=== PATIENT | male | born 1990 | race Caucasian/White ===

== ENCOUNTER 2020-07-05 18:32 | Inpatient (IN) | payer MEDICAID, SELFPAY ==
[2020-07-05 18:41] VITALS: PULSE 125; RESP 18; TEMP 36.6; O2SAT 95; BMI 23.6
--- NOTE | 2020-07-05 19:01 | ED_ITS ---
HPI - Psych General: Chief Complaint: Psychiatric Symptoms Stated Complaint: mhe/poss 96 hr hold Time Seen by Provider: 07/05/20 18:39 Source: patient and police Mode of arrival: other (police) Limitations: no limitations History of Present Illness: HPI Narrative: Caleb 29-year-old male is brought here by police. They were on a liv and arrested him. He states once they got him arrested he was saying that he was God and hallucinating. I believe he is under the influence of drugs. Her history is very hard to get from patient as he does appear delusional and is laughing and states he is seeing things. He denies SI or HI. Associated symptoms: Reports auditory hallucinations and visual hallucinations Review of Systems Const: Denies: fever(s), chills, body aches or change in appetite Eyes: Denies: blurry vision or eye discomfort ENMT: Denies: throat pain or dental pain Card: Denies: chest pain Resp: Denies: dyspnea GI: Denies: abdominal pain, nausea, vomiting or diarrhea : Denies: dysuria Musc: Denies: neck pain or back pain Skin/Breast: Denies: rash Neuro: Denies: headache(s) Psych: Reports: paranoia, visual hallucinations and auditory hallucinations Josue/Lymph: Denies: easy bruising All/Imm: Denies: urticaria Physical Exam Const: COMMON NORMALS: patient oriented x3 GENERAL APPEARANCE: anxious and disheveled HENMT: COMMON NORMALS: normocephalic and atraumatic HEAD & SCALP: normocephalic and atraumatic Eye: COMMON NORMALS: Equal, round and reactive pupils present and EOMs intact bilaterally PUPIL: Yes Equal, round and reactive pupils present Neck/C-Spine: COMMON NORMALS: full ROM and supple Chest: COMMONS NORMALS: normal inspection of the chest and normal palpation of entire chest wall Resp: COMMON NORMALS: normal respiratory effort, No retractions, No use of accessory muscles and clear to auscultation bilaterally AUSCULTATION: clear to auscultation bilaterally Cardio: COMMON NORMALS: regular rate, regular rhythm and No murmurs present (Cardio) RATE: regular rate RHYTHM: regular rhythm GI: COMMON NORMALS: Normal to inspection, nondistended, normoactive bowel sounds present, Soft to palpation, non-tender and no masses PALPATION: Yes Soft to palpation Extremity: COMMON NORMALS: normal to inspection and full ROM Neuro: COMMON NORMALS: patient oriented x3, moves all extremities and no focal motor deficits Psych: COMMON NORMALS: cooperative APPEARANCE: Yes disheveled ACTIVITY/ MOTOR BEHAVIOR: Yes fidgeting, Yes hyperactivity and Yes disorganized behavior THOUGHT PROCESS: Flight of ideas present THOUGHT CONTENT: Yes Hallucination(s) present Skin: COMMON NORMALS: no rashes or lesions noted and no wounds GENERAL SKIN EXAM: no rashes or lesions noted MDM - Psych MDM Narrative: Medical decision making narrative: Patient presents here with acute psychosis likely drug related. Patient has no signs of medical cause and his blood work here is normal. I spoke to psychiatrist Dr. Espinal and will admit to the psychiatric [facility]. He has been stable while here. Lab Data: Labs: Lab Results 07/05/20 07/05/20 Range/Units 19:08 19:08 WBC 9.9 (4.0-10.0) 10^3/ uL RBC 5.28 (4.1-5.3) 10^6/u L Hgb 16.9 H (11.7-16.6) g/dL Hct 49.8 (42.0-52.0) % MCV 94.3 H (80-94) fL MCH 32.0 (28.0-34.0) pg MCHC 33.9 (30.0-36.0) g/dL RDW 11.7 L (12.1-15.1) % Plt Count 368 (130-400) 10^3/c mm MPV 9.3 (7.4-10.4) fL Neut % (Auto) 78.4 % Lymph % (Auto) 14.2 % Harris % (Auto) 6.4 % Eos % (Auto) 0.2 % Baso % (Auto) 0.4 % Neut # (Auto) 7.74 H (1.8-7.7) 10^3/u L Lymph # (Auto) 1.4 (0.8-4.8) 10^3/u L Harris # (Auto) 0.6 (0.2-0.9) 10^3/u L Eos # (Auto) 0.0 (0.0-0.8) 10^3/u L Baso # (Auto) 0.0 (0.0-0.1) 10^3/u L Nucleated RBC % (a uto) 0 % Nucleated RBCs # 0.0 /100WBC Sodium 139 (136-145) mmol/L Potassium 3.7 (3.5-5.1) mmol/L Chloride 99 (98-107) mmol/L Carbon Dioxide 27 (22-29) mmol/L Anion Gap 16.7 (5-19) BUN 8 (6-20) mg/dL Creatinine 0.8 (0.7-1.2) mg/dL GFR Calculation 113.5 (90-130) mL/min Glucose 129 H (65-115) mg/dL Calculated Osmolal ity 288 (285-295) mOsm/k g Calcium 9.9 (8.5-10.5) mg/dL Total Bilirubin 0.5 (0.15-1.2) mg/dL AST 43 H (0-40) U/L ALT 57 H (0-41) U/L Alkaline Phosphata se 134 H (40-130) IU/L Total Protein 7.9 (6.6-8.7) g/dL Albumin 5.0 (3.5-5.2) g/dL Globulin 2.9 (1.3-4.6) g/dL Salicylates < 0.3 L (3-10) mg/dL Acetaminophen < 5.0 L (10-30) ug/mL Ethyl Alcohol < 10 (0-10) mg/dL Discharge Plan Discharge Patient Disposition: Admitted As Inpatient Clinical Impression: Acute psychosis Condition: Stable Prescriptions: No Action quetiapine 200 mg tablet 100 mg PO BID@0900,2100 RF: 0 Coding Level of Care Code ED 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
[2020-07-05 19:44] LABS: Basophils % 0.4 %; Eosinophils % 0.2 %; Hematocrit 49.8 % (42.0-52.0); Hemoglobin 16.9 g/dL (11.7-16.6); Lymphocytes # 1.4 10^3/uL (0.8-4.8); Lymphocytes % 14.2 %; Mean Corpuscular HGB Conc 33.9 g/dL (30.0-36.0); Mean Corpuscular Volume 94.3 fL (80-94); Mean Platelet Volume 9.3 fL (7.4-10.4); Monocytes # 0.6 10^3/uL (0.2-0.9); Monocytes % 6.4 %; Neutrophils # 7.74 10^3/uL (1.8-7.7); Neutrophils % 78.4 %; Nucleated Red Blood Cells % 0 %; Platelet Count 368 10^3/cmm (130-400); Red Blood Count 5.28 10^6/uL (4.1-5.3); Red Cell Distribution Width 11.7 % (12.1-15.1); White Blood Count 9.9 10^3/uL (4.0-10.0)
[2020-07-05] MEDS: LORazepam 2 mg Tablet PO (19:55)
[2020-07-05 19:56] LABS: Alanine Aminotransferase 57 U/L (0-41); Alkaline Phosphatase 134 IU/L (40-130); Anion Gap 16.7 (5-19); Aspartate Amino Transferase 43 U/L (0-40); Blood Urea Nitrogen 8 mg/dL (6-20); Calcium 9.9 mg/dL (8.5-10.5); Carbon Dioxide 27 mmol/L (22-29); Chloride 99 mmol/L (98-107); Globulin 2.9 g/dL (1.3-4.6); Glomerular Filtration Rate 113.5 mL/min (90-130); Glucose 129 mg/dL (65-115); Osmolality Calculated 288 mOsm/kg (285-295); Potassium 3.7 mmol/L (3.5-5.1); Sodium 139 mmol/L (136-145); Total Bilirubin 0.5 mg/dL (0.15-1.2); Total Protein 7.9 g/dL (6.6-8.7)
[2020-07-05 19:58] LABS: Acetaminophen < 5.0 ug/mL (10-30); Alcohol Level < 10 mg/dL (0-10); Salicylate < 0.3 mg/dL (3-10)
[2020-07-05 21:19] VITALS: PULSE 84; RESP 20; O2SAT 98
[2020-07-05 21:31] VITALS: PULSE 84; RESP 18; TEMP 36.6
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
[2020-07-05] MEDS: OLANZapine 5 mg ODT PO (21:55)
[2020-07-05] MEDS: hyDROXYzine 25 mg Capsule 50 MG PO (21:55)
[2020-07-05 22:00] VITALS: PULSE 84; RESP 18; TEMP 36.6
[2020-07-06 01:43] VITALS: BP 161/91; PULSE 121; RESP 19; TEMP 36.8; O2SAT 92
[2020-07-06 06:00] VITALS: RESP 16
[2020-07-06] MEDS: quetiapine 300 mg Tablet 150 MG PO ×2 (06:44→17:06)
[2020-07-06 14:00] VITALS: PULSE 115; RESP 18; TEMP 36.2; O2SAT 97
--- NOTE | 2020-07-06 14:35 | P.HP_ITS ---
Providers/Chief Complaint Admitting Physician: Georges Espinal MD Chief Complaint: mhe/poss 96 hr hold HPI NPU History of Present Illness Caleb Bello is a 29 year old male who presented to the emergency de partment with the following report: Chief Complaint: Psychiatric Symptoms Stated Complaint: mhe/poss 96 hr hold Time Seen by Provider: 07/05/20 18:39 Source: patient and police Mode of arrival: other (police) Limitations: no limitations History of Present Illness: HPI Narrative: Caleb 29-year-old male is brought here by police. They were on a liv and arrested him. He states once they got him arrested he was saying that he was God and hallucinating. I believe he is under the influence of drugs. Her history is very hard to get from patient as he does appear delusional and is laughing and states he is seeing things. He denies SI or HI. Associated symptoms: Reports auditory hallucinations and visual hallucinations. He was admitted to the neuropsychiatric unit for definitive treatment of those issues. Kenneth presented as a poor historian and very resistant to questioning. He became very angry from the very beginning reporting that people called him got to his face but then tell him he is not God. When I asked him his birthdate, he reported you mean the 1 for this body? He answered I do not know the question about smoking cigarettes, denied alcohol use denied bony dice or any other illicit drug use. He reports that he may have gone to some kind of rehab but denies ever having a DUI. 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 He spent most of the time ranting about people telling him he was got to his face and then trying to deny it later. He got very irritable and asked questions. When asked about the possibility of him trying a medication, he demanded that I leave the room. Psychiatric history: He reports that he had 1 inpatient hospitalization in the past. Substance abuse history: As above. Family history: He denies mental health or addiction treatment or suicide attempts or completions in his family. Developmental history: He denied any difficulties with his gestation Or or delivery, he reports he learned to walk and talk and met his developmental milestones on time, he denied any speech therapy, learning support, emotional support or special education classes. Psychosocial history: He reports his mother and father were together when he was born and that he is the only product of that union. He reports that his childhood was fine and he denied emotional, physical or sexual abuse. He reports he graduated from high school. He then got irritable about all the questions I asked including sexual orientation, past relationships, children, service or christian. Legal history: He would not answer and said it was irrelevant. Medical history: He reported that already knew. Meds NPU Home Medications Medication Instructions Recorded Confirmed Last Taken Type Seroquel 150 mg PO 16 07/05/20 07/05/20 Unknown History quetiapine [Seroquel] 300 mg PO BEDTIME 07/05/20 07/05/20 Unknown History Allergies Allergy/AdvReac Type Severity Reaction Status Date / Time No Known Allergies Allergy Verified 07/05/20 18:49 PFSH NPU PFSH: Social History Smoking and tobacco status: former smoker Mental Status Exam MSE Comments: This is a well-nourished, well-developed white male with adequate grooming and eye contact with hospital scrubs on. No abnormal movements except for psychomotor agitation. Uncooperative with exam in mild to moderate distress. Speech was increased rate and volume and effeminate. Mood described as fine affect bizarre. Thought process disorganized at times, thou ght content: Patient denied suicidal or homicidal ideations, there were no delusions reported but extreme hyper islam delusions noted. He did not report auditory or visual hallucinations but was found talking to himself and into the mirror on multiple occasions. Attention and concentration were limited and memory was unreliable but none were formally tested. He is alert and oriented times person and place. Insight and judgment are impaired impulse control is impaired. Vitals/I&O/Wt Last Vital Signs Temp 97.2 F L 07/06/20 14:00 Pulse 115 H 07/06/20 14:00 Resp 18 07/06/20 14:00 BP 161/91 07/06/20 01:43 Pulse Ox 97 07/06/20 14:00 Weight last 48 hrs Weight 72.575 kg Data NPU : 07/05/20 19:08 07/05/20 19:08 A&P Assessment and plan (1) Acute psychosis: Status: Acute (2) Silvio: Status: Acute Additional A&P Information This is a 29-year-old white male who presents with jose silvio/psychosis believing that he is God and being very irritable with anyone who disagrees with disposition. He has been taking Seroquel but is clearly not having control of his symptoms. 1. Continue current medication. We will attempt to get him to consider a different antipsychotic. 2. Continue every 15 minute checks for safety. 3. Encourage individual, group and milieu therapy. 4. We will attempt to get UDS and determine whether addiction is playing a role in his presentation. Involuntary Hold Information 96 Hour Hold: 96 Hour Involuntary Admission: Yes 96 Hour Hold Ending Date: 07/11/20 96 Hour Hold Ending Time: 20:09 Attestations NPU Medical Necessity Statement*: Inpatient hospitalization is medically necessary and the clinically appropriate intervention at this time. We will monitor medications and make changes as indicated. He will be in the hospital for over 2 midnights. Likely length of stay 8 to 10 days. 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
--- NOTE | 2020-07-06 17:56 | PC.NURSE ---
Vitals Patient refused to let nurse to obtain blood pressure.
[2020-07-06] MEDS: trazodone 50 mg Tablet PO (20:16)
[2020-07-06] MEDS: hyDROXYzine 25 mg Capsule 50 MG PO (20:16)
[2020-07-06] MEDS: nicotine 2 mg Gum BUCCAL (20:16)
[2020-07-06] MEDS: quetiapine 300 mg Tablet PO (20:16)
[2020-07-06 22:00] VITALS: PULSE 107; RESP 18; TEMP 36.2; O2SAT 94
[2020-07-07 06:00] VITALS: BP 113/68; PULSE 112; RESP 17; TEMP 36.3; O2SAT 96
[2020-07-07] MEDS: quetiapine 300 mg Tablet 150 MG PO ×2 (06:08→16:31)
[2020-07-07] MEDS: nicotine 2 mg Gum BUCCAL ×2 (09:01→18:45)
[2020-07-07 14:00] VITALS: BP 105/65; PULSE 105; RESP 20; TEMP 36.4; O2SAT 97
--- NOTE | 2020-07-07 18:57 | PM.NPN ---
Subjective NPU Subjective: Interval history: Kenneth presents today continuing to struggle with his psychosis. Getting angry off and on about the questions were being asked of him and ultimately not wanting to speak about the fact that he is God. But and we talked about psychosis and the fact that we needed to assist him in his psychosis, he reported that that was not true and that he only had to stay 96 hours. Then he got upset when he found out that the 96-hour hold does not include the weekend. He was not open to considering medication. Mental Status Exam MSE Comments: This is a well-nourished, well-developed white male with adequate grooming and eye contact with hospital scrubs on. No abnormal movements except for psychomotor agitation. Uncooperative with exam in mild to moderate distress. Speech was increased rate and volume and effeminate. Mood described as okay, affect bizarre. Thought process disorganized at times, thought content: Patient denied suicidal or homicidal ideations, there were no delusions reported but extreme hyper judaism delusions noted. He did not report auditory or visual hallucinations but was found talking to himself and into the mirror on multiple occasions. Attention and concentration were limited and memory was unreliable but none were formally tested. He is alert and oriented times person and place. Insight and judgment are impaired impulse control is impaired. Vitals/I&O/Wt Last Vital Signs Temp 97.7 F 07/07/20 20:10 Pulse 101 H 07/07/20 20:10 Resp 19 H 07/07/20 20:10 BP 129/83 07/07/20 20:10 Pulse Ox 94 07/07/20 20:10 Data NPU : 07/05/20 19:08 07/05/20 19:08 A&P Additional A&P Information (1) Acute psychosis: (2) Silvio: This is a 29-year-old white male who presents with jose silvio/psychosis believing that he is God and being very irritable with anyone who disagrees with disposition. He has been taking Seroquel but is clearly not having control of his symptoms. 1. Continue current medication. We will attempt to get him to consider a different antipsychotic. 2. Continue every 15 minute checks for safety. 3. Encourage individual, group and milieu therapy. 4. We will attempt to get UDS and determine whether addiction is playing a role in his presentation. Involuntary Hold Information 96 Hour Hold: 96 Hour Involuntary Admission: Yes 96 Hour Hold Ending Date: 07/11/20 96 Hour Hold Ending Time: 20:09 Attestations NPU Medical Necessity Statement*: Inpatient hospitalization is medically necessary and the clinically appropriate intervention at this time. We will monitor medications and make changes as indicated. Likely length of stay 8 to 10 days. 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
[2020-07-07 20:10] VITALS: BP 129/83; PULSE 101; RESP 19; TEMP 36.5; O2SAT 94
[2020-07-07] MEDS: quetiapine 300 mg Tablet PO (20:19)
[2020-07-08 06:00] VITALS: BP 119/80; PULSE 94; RESP 18; TEMP 36.2; O2SAT 96
[2020-07-08] MEDS: quetiapine 300 mg Tablet 150 MG PO ×2 (06:39→16:12)
[2020-07-08] MEDS: hyDROXYzine 25 mg Capsule 50 MG PO (11:07)
--- NOTE | 2020-07-08 11:09 | PC.NURSE ---
Anxiety/PRN Vistaril Patient at nurses station reporting increased anxiety, patient has been walking in hallway and talking to himself. Will monitor for effectiveness of this medication.
[2020-07-08] MEDS: nicotine 2 mg Gum BUCCAL ×2 (12:25→17:21)
[2020-07-08] MEDS: OLANZapine 5 mg ODT PO (12:27)
--- NOTE | 2020-07-08 12:28 | PC.NURSE ---
PRN ZYDIS Patient requested further medication for anxiety. Given 5mg zyprexa zydis.
--- NOTE | 2020-07-08 15:48 | P.PN_ITS ---
Subjective NPU Subjective: Interval history: Caleb presents today reporting that he is not interested in any medication. He continues to deny that he is having any psychiatric difficulty. I continue to review with him the fact that his desire discharge would only be accomplished by us treating his symptoms. I discussed the fact with him that I would be forced to put in a 21-day hold given his level of dysfunction and he continued to resist any kind of treatment or suggestion of any mental difficulties. Mental Status Exam MSE Comments: This is a well-nourished, well-developed white male with adequate grooming and eye contact with hospital scrubs on. No abnormal movements except for psychomotor agitation. Uncooperative with exam in mild to moderate distress. Speech was increased rate and volume and effeminate. Mood described as fine, affect bizarre and irritable. Thought process disorganized at times, thought content: Patient denied suicidal or homicidal ideations, there were no delusions reported but extreme hyper catholic delusions noted. He did not report auditory or visual hallucinations but was found talking to himself and into the mirror on multiple occasions. Attention and concentration were limited and memory was unreliable but none were formally tested. He is alert and oriented times person and place. Insight and judgment are impaired impulse control is impaired. Vitals/I&O/Wt Last Vital Signs Temp 97.2 F L 07/08/20 06:00 Pulse 94 07/08/20 06:00 Resp 18 07/08/20 06:00 BP 119/80 07/08/20 06:00 Pulse Ox 96 07/08/20 06:00 Weight last 48 hrs Weight 74.843 kg Data NPU : 07/05/20 19:08 07/05/20 19:08 A&P Additional A&P Information (1) Acute psychosis: (2) Silvio: This is a 29-year-old white male who presents with jose silvio/psychosis believing that he is God and being very irritable with anyone who disagrees with disposition. He has been taking Seroquel but is clearly not having control of his symptoms. 1. Continue current medication. We will start Abilify 10 mg p.o. every morning as patient approached this principal technical writer later and stated he was willing to try it if it would get him discharged earlier after discussion of the risks, benefits and alternatives he appears to understand agreed to proceed as is documented in this note 2. Continue every 15 minute checks for safety. 3. Encourage individual, group and milieu therapy. 4. We will attempt to get UDS and determine whether addiction is playing a role in his presentation. Involuntary Hold Information 96 Hour Hold: 96 Hour Involuntary Admission: Yes 96 Hour Hold Ending Date: 07/11/20 96 Hour Hold Ending Time: 20:09 Attestations NPU Medical Necessity Statement*: Inpatient hospitalization is medically necessary and the clinically appropriate intervention at this time. We will monitor medications and make changes as indicated. Likely length of stay 8 to 10 days. 21-day hold paperwork has been submitted. 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
[2020-07-08] MEDS: ARIPiprazole 10 mg Tablet PO (16:11)
[2020-07-08] MEDS: quetiapine 300 mg Tablet PO (21:53)
[2020-07-08 22:00] VITALS: BP 125/82; PULSE 107; RESP 18; TEMP 36.2; O2SAT 97
[2020-07-09 06:00] VITALS: BP 145/93; PULSE 98; RESP 20; TEMP 36.3; O2SAT 98
[2020-07-09] MEDS: quetiapine 300 mg Tablet 150 MG PO ×2 (06:07→16:40)
[2020-07-09] MEDS: ARIPiprazole 10 mg Tablet PO (08:29)
[2020-07-09] MEDS: nicotine 2 mg Gum BUCCAL ×3 (10:53→17:21)
[2020-07-09] MEDS: OLANZapine 5 mg ODT PO ×2 (12:15→16:42)
[2020-07-09 13:52] VITALS: BP 147/98; PULSE 103; RESP 18; TEMP 36.5; O2SAT 96
--- NOTE | 2020-07-09 17:55 | P.PN_ITS ---
Subjective NPU Subjective: Interval history: Caleb presents today endorsing that he is tolerating the medication at this point. He denied any specific side effects or concerns from the medication. He reports that he is sleeping a little better and eating fine. He continues to be fairly resistant to interview. Mental Status Exam MSE Comments: This is a well-nourished, well-developed white male with adequate grooming and eye contact with hospital scrubs on. No abnormal movements except for psychomotor agitation. Uncooperative with exam in mild distress. Speech was decreased rate and volume and effeminate. Mood described as tired, affect bizarre and a little less irritable. Thought process disorganized at times, thought content: Patient denied suicidal or homicidal ideations, there were no delusions reported but extreme hyper moravian delusions noted. He did not report auditory or visual hallucinations but was found talking to himself and into the mirror on multiple occasions. Attention and concentration were limited and memory was unreliable but none were formally tested. He is alert and oriented times person and place. Insight and judgment are impaired impulse control is impaired. Vitals/I&O/Wt Last Vital Signs Temp 98.1 F 07/09/20 22:00 Pulse 78 07/09/20 22:00 Resp 18 07/09/20 22:00 BP 116/78 07/09/20 22:00 Pulse Ox 98 07/09/20 22:00 Weight last 48 hrs Weight 74.843 kg Data NPU : 07/05/20 19:08 07/05/20 19:08 A&P Additional A&P Information (1) Acute psychosis: (2) Silvio: This is a 29-year-old white male who presents with jose silvio/psychosis believing that he is God and being very irritable with anyone who disagrees with disposition. He has been taking Seroquel but is clearly not having control of his symptoms. 1. Continue current medication. We will consider increasing Abilify tomorrow. 2. Continue every 15 minute checks for safety. 3. Encourage individual, group and milieu therapy. 4. We will attempt to get UDS and determine whether addiction is playing a role in his presentation. Involuntary Hold Information 96 Hour Hold: 96 Hour Involuntary Admission: Yes 96 Hour Hold Ending Date: 07/11/20 96 Hour Hold Ending Time: 20:09 Attestations NPU Medical Necessity Statement*: Inpatient hospitalization is medically necessary and the clinically appropriate intervention at this time. We will monitor medications and make changes as indicated. Likely length of stay 8 to 10 days. 21-day hold hearing on Saturday. 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
[2020-07-09] MEDS: quetiapine 300 mg Tablet PO (20:55)
[2020-07-09 22:00] VITALS: BP 116/78; PULSE 78; RESP 18; TEMP 36.7; O2SAT 98
[2020-07-10 06:00] VITALS: BP 159/83; PULSE 90; RESP 19; TEMP 36.6; O2SAT 97
[2020-07-10] MEDS: quetiapine 300 mg Tablet 150 MG PO ×2 (06:17→15:44)
[2020-07-10] MEDS: ARIPiprazole 10 mg Tablet PO (08:04)
[2020-07-10] MEDS: nicotine 2 mg Gum BUCCAL ×2 (10:59→16:42)
[2020-07-10] MEDS: OLANZapine 5 mg ODT PO ×2 (11:49→17:25)
[2020-07-10 14:00] VITALS: BP 136/92; PULSE 129; RESP 20; TEMP 36.6
--- NOTE | 2020-07-10 17:03 | PM.NPN ---
Subjective NPU Subjective: Interval history: Caleb presents today essentially unchanged but certainly not as aggressive in his irritability. He continues to be mostly excepting of the questions being asked except for any questions around God. Any questions in this area elicit a grimaldo and aggressive response which usually leads to him speaking to himself and very internally preoccupied. He has become a little less on edge of the last discharge or delusions are discussed. Mental Status Exam MSE Comments: This is a well-nourished, well-developed white male with adequate grooming and eye contact with hospital scrubs on. No abnormal movements except for psychomotor agitation. Uncooperative with exam in mild distress. Speech was decreased rate and volume and effeminate. Mood described as fine, affect bizarre and a little less irritable. Thought process disorganized at times, thought content: Patient denied suicidal or homicidal ideations, there were no delusions reported but extreme hyper islam delusions noted. He did not report auditory or visual hallucinations but was found talking to himself and into the mirror on multiple occasions. Attention and concentration were limited and memory was unreliable but none were formally tested. He is alert and oriented times person and place. Insight and judgment are impaired impulse control is impaired. Vitals/I&O/Wt Last Vital Signs Temp 96.8 F L 07/10/20 22:00 Pulse 116 H 07/10/20 22:00 Resp 16 07/10/20 22:00 BP 136/92 07/10/20 14:00 Pulse Ox 94 07/10/20 22:00 Weight last 48 hrs Weight 74.843 kg Data NPU : 07/05/20 19:08 07/05/20 19:08 A&P Additional A&P Information (1) Acute psychosis: (2) Silvio: This is a 29-year-old white male who presents with jose silvio/psychosis believing that he is God and being very irritable with anyone who disagrees with disposition. He has been taking Seroquel but is clearly not having control of his symptoms. 1. Continue current medication. Increase Abilify to 15 mg p.o. every morning in the morning. 2. Continue every 15 minute checks for safety. 3. Encourage individual, group and milieu therapy. 4. We will attempt to get UDS and determine whether addiction is playing a role in his presentation Involuntary Hold Information 96 Hour Hold: 96 Hour Involuntary Admission: Yes 96 Hour Hold Ending Date: 07/11/20 96 Hour Hold Ending Time: 20:09 Attestations NPU Medical Necessity Statement*: Inpatient hospitalization is medically necessary and the clinically appropriate intervention at this time. We will monitor medications and make changes as indicated. Likely length of stay 8 to 10 days. 21-day hold hearing on tomorrow. 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
[2020-07-10] MEDS: quetiapine 300 mg Tablet PO (20:15)
--- NOTE | 2020-07-10 21:19 | PC.NURSE ---
PLEASANT, DENIES WANTING TO HARM SELF. TALKATIVE IN DAY ROOM DURING SNACK TIME.
[2020-07-10 22:00] VITALS: PULSE 116; RESP 16; TEMP 36; O2SAT 94
[2020-07-11 06:00] VITALS: BP 122/79; PULSE 87; RESP 17; TEMP 36; O2SAT 96
[2020-07-11] MEDS: ARIPiprazole 10 mg Tablet PO (07:34)
[2020-07-11] MEDS: quetiapine 300 mg Tablet 150 MG PO ×2 (07:34→15:28)
[2020-07-11] MEDS: nicotine 2 mg Gum BUCCAL ×3 (12:24→18:31)
--- NOTE | 2020-07-11 14:04 | P.PN_ITS ---
Subjective NPU Subjective: Interval history: Caleb presents today attending the lobby for discharge. He attempted again at the court house during the 21-day hold hearing. He did attempt to get the stone setter apprentice to throw out the request. But could obviously not provide any rational position as to why we should not continue with his inpatient treatment. He is continuing to take oral medication. He seems less irritable. He talked about his outpatient psychiatrist and his mother collaborating to get him to continue the medication after discharge. He seems ambivalent about taking the medication. He seemed to be eating okay sleeping a little better. Mental Status Exam MSE Comments: This is a well-nourished, well-developed white male with adequate grooming and eye contact with hospital scrubs on. No abnormal movements except for resolving psychomotor agitation. More cooperative with exam in mild distress. Speech was more normal rate and volume and effeminate. Mood described as okay, affect less bizarre and irritable. Thought process disorganized at times, thought content: Patient denied suicidal or homicidal ideations, there were no delusions reported but less prominent hyper jainism delusions noted. He did not report auditory or visual hallucinations and was not seen talking to himself today. Attention and concentration were improving and memory was still unreliable but none were formally tested. He is alert and oriented times person and place. Insight and judgment are impaired, impulse control is impaired. Vitals/I&O/Wt Last Vital Signs Temp 97.8 F 07/11/20 21:21 Pulse 84 07/11/20 21:21 Resp 16 07/11/20 21:21 BP 138/98 07/11/20 21:21 Pulse Ox 97 07/11/20 21:21 Data NPU : 07/05/20 19:08 07/05/20 19:08 A&P Assessment and plan (1) Bipolar disorder with psychotic features: Status: Acute Additional A&P Information (1) Acute psychosis: (2) Silvio: This is a 29-year-old white male who presents with jose silvio/psychosis believ ing that he is God and being very irritable with anyone who disagrees with disposition. He has been taking Seroquel but is clearly not having control of his symptoms. 1. Continue current medication. We will discuss the possibility of the long- acting injectable tomorrow and hope that over the next days he will be open to taking the shot. 2. Continue every 15 minute checks for safety. 3. Encourage individual, group and milieu therapy. 4. Missed the opportunity to get information from his UDS so we will not know whether substances played a role in this manic episode. 5. He was placed on 21-day hold today. Involuntary Hold Information 96 Hour Hold: 96 Hour Involuntary Admission: Yes 96 Hour Hold Ending Date: 07/11/20 96 Hour Hold Ending Time: 20:09 Attestations NPU Medical Necessity Statement*: Inpatient hospitalization is medically necessary and the clinically appropriate intervention at this time. We will monitor medications and make changes as indicated. Likely length of stay 8 to 10 days. Coding Level of Care Code Acute [employer] for Moncho Marvin Diagnoses Bipolar disorder with psychotic features F31.9
--- NOTE | 2020-07-11 14:28 | PC.NURSE ---
OFF UNIT FOR [address]
--- NOTE | 2020-07-11 15:26 | PC.NURSE ---
return to unit from [address]
[2020-07-11] MEDS: OLANZapine 5 mg ODT PO ×2 (15:44→21:28)
--- NOTE | 2020-07-11 15:44 | PC.NURSE ---
PRN ZYPREXA ZYDIS 5 MG GIVEN PO PER PT C/O STATED ANXIETY/AGITATION. PT RETURNED TO UNIT FROM [address], GOT ON THE PHONE AND WAS YELLING THEY ARE KEEPING ME LONGER! I'M BEING HELD HERE HOSTAGE!
[2020-07-11] MEDS: acetaminophen 325 mg Tablet 650 MG PO (18:36)
[2020-07-11 21:21] VITALS: BP 138/98; PULSE 84; RESP 16; TEMP 36.6; O2SAT 97
[2020-07-11] MEDS: quetiapine 300 mg Tablet PO (21:28)
[2020-07-12 06:00] VITALS: BP 126/89; PULSE 83; RESP 16; TEMP 36.3; O2SAT 97
[2020-07-12] MEDS: quetiapine 300 mg Tablet 150 MG PO ×2 (06:14→15:19)
[2020-07-12] MEDS: ARIPiprazole 10 mg Tablet PO (08:35)
[2020-07-12] MEDS: nicotine 2 mg Gum BUCCAL ×2 (11:49→17:01)
[2020-07-12 14:00] VITALS: BP 134/85; PULSE 120; RESP 18; TEMP 37.1; O2SAT 96
[2020-07-12] MEDS: OLANZapine 5 mg ODT PO ×2 (17:01→21:54)
--- NOTE | 2020-07-12 17:02 | PC.NURSE ---
PRN Zyprexa Zydis Patient at nurse's station requesting something for agitation/anxiety. Patient pacing in halls, states he feels his anxiety rising and doesn't want his behavior to start. 5mg PO Zyprexa Zydis given. Will monitor for effectiveness.
[2020-07-12] MEDS: ARIPiprazole Maintena 400 MG IM (17:33)
--- NOTE | 2020-07-12 18:47 | PM.NPN ---
Subjective NPU Subjective: Interval history: Caleb presented today continuing to have some resistance to treatment but also showing some improved collaborative perspective. He initially was resistant to the idea of an IM preparation of Abilify reporting he wanted to just take the pills every day. However we discussed the importance of compliance and outcomes with the medication. And how confident the inpatient and outpatient teams can be with adherence when there is a once a month injection. We discussed the risks, benefits and alternatives of initiating Abilify Maintena and he understood and agreed to proceed as is documented in his note. Mental Status Exam MSE Comments: This is a well-nourished, well-developed white male with adequate grooming and eye contact with hospital scrubs on. No abnormal movements except for resolving mild psychomotor agitation. More cooperative with exam in no acute distress. Speech was normal rate and volume and effeminate. Mood described as better, affect more euthymic. Thought process mostly organized, thought content: Patient denied suicidal or homicidal ideations, there were no delusions reported but lessening hyper roman catholic delusions noted. He did not report auditory or visual hallucinations and was not seen talking to himself today. Attention and concentration were improving and memory was more reliable but none were formally tested. He is alert and oriented times person and place. Insight and judgment are impaired, but improving, impulse control is impaired. Vitals/I&O/Wt Last Vital Signs Temp 98.1 F 07/12/20 22:00 Pulse 128 H 07/12/20 22:00 Resp 18 07/12/20 22:00 BP 125/78 07/12/20 22:00 Pulse Ox 97 07/12/20 22:00 Data NPU : 07/05/20 19:08 07/05/20 19:08 A&P Additional A&P Information (1) Bipolar disorder with psychotic features: Additional A&P Information (1) Acute psychosis: (2) Silvio: This is a 29-year-old white male who presents with jose silvio/psychosis believing that he is God and being very irritable with anyone who disagrees with disposition. He has been taking Seroquel but is clearly not having control of his symptoms. 1. Continue current medication. Initiate Abilify Maintena at 400 mg IM every 30 days and continue the oral Abilify for 14 more days. 2. Continue every 15 minute checks for safety. 3. Encourage individual, group and milieu therapy. 4. Missed the opportunity to get information from his UDS so we will not know whether substances played a role in this manic episode. Involuntary Hold Information 96 Hour Hold: 96 Hour Involuntary Admission: Yes 96 Hour Hold Ending Date: 07/11/20 96 Hour Hold Ending Time: 20:09 Attestations NPU Medical Necessity Statement*: Inpatient hospitalization is medically necessary and the clinically appropriate intervention at this time. We will monitor medications and make changes as indicated. Likely length of stay 4-6 days. Coding Level of Care Code Acute Equal Opportunity Counselor for Moncho Marvin
[2020-07-12] MEDS: quetiapine 300 mg Tablet PO (20:50)
[2020-07-12] MEDS: acetaminophen 325 mg Tablet 650 MG PO (20:51)
[2020-07-12 22:00] VITALS: BP 125/78; PULSE 128; RESP 18; TEMP 36.7; O2SAT 97
--- NOTE | 2020-07-12 22:00 | PC.NURSE ---
Zyprexa Zydis 5mg PO Zyprexa Zydis given for anxiety. Will continue to monitor
[2020-07-12 22:12] LABS: Amphetamines Screen Urine Negative (Negative); Barbiturates Screen Urine Negative (Negative); Benzodiazepines Screen Urine Negative (Negative); Cocaine Screen Urine Negative (Negative); Opiate Screen Urine Negative (Negative); PCP Screen Urine Negative (Negative); THC Screen Urine Negative (Negative)
--- NOTE | 2020-07-13 02:32 | PC.NURSE ---
pm assessment V/S NORMAL, BREATH SOUNDS NORMAL, HEART SOUNDS NORMAL, PROVIDED URINE SAMPLE THIS EVENING. PT CONFIRMS AH, BUT STATES THAT HE ALWAYS HEARS THEM. PT IS LESS MANIC SINCE THE LAST TIME THIS NURSE OBSERVED HIM A WEEK AGO. HE IS ABLE TO ASK/ANSWER QUESTIONS APPROPRIATELY. PT STATED, I HOPE I AM ABLE TO GO HOME AND SPEND KIM WITH MY FAMILY. PT STATES THAT HIS MOTHER IS A STRONG SUPPORT SYSTEM FOR HIM AND HE INTENDS TO CARRY ON WITH MEDICATION WHEN HE LEAVES THE UNIT. HIS SPEECH IS STILL PRESSURED AND HE BARELY TAKES A BREATH BETWEEN WORDS. HE RESPONDS APPROPRIATELY TO STAFF. WILL CONTINUE TO MONITOR PT
[2020-07-13] MEDS: quetiapine 300 mg Tablet 150 MG PO ×2 (05:40→15:16)
[2020-07-13 06:00] VITALS: BP 128/82; PULSE 107; RESP 18; TEMP 36.5; O2SAT 107
[2020-07-13] MEDS: acetaminophen 325 mg Tablet 650 MG PO ×4 (06:11→21:22)
[2020-07-13] MEDS: ARIPiprazole 10 mg Tablet PO (07:41)
[2020-07-13] MEDS: nicotine 2 mg Gum BUCCAL ×4 (08:06→19:11)
[2020-07-13] MEDS: OLANZapine 5 mg ODT PO ×2 (09:12→18:34)
--- NOTE | 2020-07-13 09:12 | PC.NURSE ---
PRN Zyprexa Zydis Patient stated he he was anxious and requested zyprexa zydis.
[2020-07-13 12:39] VITALS: BP 121/83; PULSE 109; RESP 18; TEMP 37.2; O2SAT 95
--- NOTE | 2020-07-13 18:32 | PM.NPN ---
Subjective NPU Subjective: Interval history: Caleb presented today reporting that he is feeling much better and was able to have a conversation about his God complex. He was able to identify that what this technical publications writer's been saying this entire time about his delusions was accurate. He identified that the Abilify does assist in clearing his mind of the thoughts he had been having. He agreed to take the injection and reports that he is having no ill effects from it. We discussed the possibility of discharge in the morning and his mother was supportive of that idea. Mental Status Exam MSE Comments: This is a well-nourished, well-developed white male with adequate grooming and eye contact with hospital scrubs on. No abnormal movements except for resolving mild psychomotor agitation. More cooperative with exam in no acute distress. Speech was normal rate and volume and effeminate. Mood described as pretty good, affect more euthymic. Thought process mostly organized, thought content: Patient denied suicidal or homicidal ideations, there were no delusions reported or noted. He did not report auditory or visual hallucinations and was not seen talking to himself today. Attention and concentration were improving and memory was more reliable but none were formally tested. He is alert and oriented times person and place. Insight and judgment are improving, impulse control is improving. Vitals/I&O/Wt Last Vital Signs Temp 98.4 F 07/13/20 21:07 Pulse 111 H 07/13/20 21:07 Resp 18 07/13/20 21:07 BP 129/87 07/13/20 21:07 Pulse Ox 97 07/13/20 21:07 Data NPU : 07/05/20 19:08 07/05/20 19:08 A&P Additional A&P Information (1) Bipolar disorder with psychotic features: Additional A&P Information (1) Acute psychosis: (2) Silvio: This is a 29-year-old white male who presents with jose silvio/psychosis believing that he is God and being very irritable with anyone who disagrees with disposition. He presents today improving on Abilify and gearing up for discharge. 1. Continue current medication. 3. Encourage individual, group and milieu therapy. 4. Missed the opportunity to get information from his UDS so we will not know whether substances played a role in this manic episode. Involuntary Hold Information 96 Hour Hold: 96 Hour Involuntary Admission: Yes 96 Hour Hold Ending Date: 07/11/20 96 Hour Hold Ending Time: 20:09 Attestations NPU Medical Necessity Statement*: Inpatient hospitalization is medically necessary and the clinically appropriate intervention at this time. We will monitor medications and make changes as indicated. Likely length of stay 1-3 days. Tentative plan for discharge tomorrow. Coding Level of Care Code Acute Room Attendants for Moncho Marvin
--- NOTE | 2020-07-13 18:34 | PC.NURSE ---
prn ZYPREXA ZYDIS 5 MG GIVEN PO PER PT C/O STATED ANXIETY/AGITATION. WILL CONT TO MONITOR.
[2020-07-13 21:07] VITALS: BP 129/87; PULSE 111; RESP 18; TEMP 36.9; O2SAT 97
[2020-07-13] MEDS: quetiapine 300 mg Tablet PO (21:22)
[2020-07-13] MEDS: trazodone 50 mg Tablet PO (21:22)
[2020-07-14] MEDS: quetiapine 300 mg Tablet 150 MG PO (05:56)
[2020-07-14 06:00] VITALS: BP 129/83; PULSE 116; RESP 18; TEMP 36.9; O2SAT 96
[2020-07-14] MEDS: hyDROXYzine 25 mg Capsule 50 MG PO (06:55)
[2020-07-14] MEDS: nicotine 2 mg Gum BUCCAL ×2 (06:55→11:02)
[2020-07-14] MEDS: ARIPiprazole 10 mg Tablet PO (08:16)
--- NOTE | 2020-07-14 08:39 | P.DS_ITS ---
Diagnoses at Discharge Discharge Diagnosis (1) Bipolar disorder with psychotic features: Status: Acute Reason for Visit Reason for Visit: mhe/poss 96 hr hold Brief History: History of Present Illness Caleb Bello is a 29 year old male who presented to the emergency department with the following report: Chief Complaint: Psychiatric Symptoms Stated Complaint: mhe/poss 96 hr hold Time Seen by Provider: 07/05/20 18:39 Source: patient and police Mode of arrival: other (police) Limitations: no limitations History of Present Illness: HPI Narrative: Caleb 29-year-old male is brought here by police. They were on a liv and arrested him. He states once they got him arrested he was saying that he was God and hallucinating. I believe he is under the influence of drugs. Her history is very hard to get from patient as he does appear delusional and is laughing and states he is seeing things. He denies SI or HI. Associated symptoms: Reports auditory hallucinations and visual hallucinations. He was admitted to the neuropsychiatric unit for definitive treatment of those issues. Kenneth presented as a poor historian and very resistant to questioning. He became very angry from the very beginning reporting that people called him got to his face but then tell him he is not God. When I asked him his birthdate, he reported you mean the 1 for this body? He answered I do not know the question about smoking cigarettes, denied alcohol use denied jaundice or any other illicit drug use. He reports that he may have gone to some kind of rehab but denies ever having a DUI. 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 He spent most of the time ranting about people telling him he was got to his face and then trying to deny it later. He got very irritable and asked questions. When asked about the possibility of him trying a medication, he demanded that I leave the room. Psychiatric history: He reports that he had 1 inpatient hospitalization in the past. Substance abuse history: As above. Family history: He denies mental health or addiction treatment or suicide attempts or completions in his family. Developmental history: He denied any difficulties with his gestation Or or delivery, he reports he learned to walk and talk and met his developmental milestones on time, he denied any speech therapy, learning support, emotional support or special education classes. Psychosocial history: He reports his mother and father were together when he was born and that he is the only product of that union. He reports that his childhood was fine and he denied emotional, physical or sexual abuse. He reports he graduated from high school. He then got irritable about all the questions I asked including sexual orientation, past relationships, children, service or sikh. Legal history: He would not answer and said it was irrelevant. Medical history: He reported that already knew. Hospital Course Hospital Course Kenneth presented to the emergency department with clear psychosis, silvio and irritability. He was admitted to the neuropsychiatric unit for definitive gabriel tment of those issues on a 96-hour hold. He very slowly acclimated to the individual, group and milieu therapies provided being fairly resistant to treatment initially. Ultimately he began taking oral thought and was placed on a 21-day hold. He showed marked improvement on the Abilify and willingly took the Abilify Maintena injection and was released from his 21-day hold very early. He was able to contract for safety prior to being discharged. During the hospitalization, patient had routine laboratory studies which were within normal limits except for few outliers. Additionally he had a general medical evaluation which was also within normal limits and revealed no new acute processes. Discharge Summary: At the time of discharge, patient was absent lethality and psychosis/silvio was resolving. Mood and anxiety were well managed. Patient endorsed a plan to follow-up with the aftercare recommendations of the treatment team. Patient was evaluated and deemed to be absent credible lethality, and had achieved the maximum benefit from an inpatient hospitalization, so was discharged. Involuntary Hold Information 96 Hour Hold: 96 Hour Involuntary Admission: Yes 96 Hour Hold Ending Date: 07/11/20 96 Hour Hold Ending Time: 20:09 Mental Status Exam MSE Comments: This is a well-nourished, well-developed white male with adequate grooming and eye contact with hospital scrubs on. No abnormal movements. Cooperative with exam in no acute distress. Speech was normal rate and volume and effeminate. Mood described as pretty good, affect congruent. Thought process mostly organized, thought content: Patient denied suicidal or homicidal ideations, there were no delusions reported or noted. He did not report auditory or visual hallucinations and did not appear to be attending to internal stimuli. Attention and concentration were improving and memory was more reliable but none were formally tested. He is alert and oriented times 3. Insight and judgment are improving, impulse control is improving. Discharge Data Vitals: Last Vital Signs Temp 98.4 F 07/14/20 06:00 Pulse 116 H 07/14/20 06:00 Resp 18 07/14/20 06:00 BP 129/83 07/14/20 06:00 Pulse Ox 96 07/14/20 06:00 Discharge Plan Discharge Patient Disposition: Home Condition: Stable Prescriptions: New aripiprazole 10 mg Tablet 10 mg PO DAILY 13 Days Qty: 13 RF: 0 Abilify Maintena 400 mg suspension,extended rel recon 400 mg IM Q28D Qty: 1 RF: 1 Continued Seroquel 300 mg Tablet 150 mg PO ,16 30 Days Qty: 30 RF: 1 Seroquel 300 mg Tablet 300 mg PO BEDTIME 30 Days Qty: 30 RF: 1 Discharge Orders: Discharge Order (Routine); Ordered 07/14/20 Ordered By: Georges Espinal Referrals: Gaye Botello [facility] [Other] - 08/11/20 2:20 pm (Appointment for hospital follow up. Your discharge summary will be sent to them for continuity of care. Staff will contact you about your next Abilify Maintena 400mg Injection. Hopefully it can be scheduled this same day/time. You will need to pick the medication up from your pharmacy prior to this appointment and bring it with you.) Discharge Diet: Regular Discharge Activity: Resume usual activity Patient Instructions: Aripiprazole (By mouth), Aripiprazole (Injection), Anxiety (DC) Activity Restrictions/Additional Instructions: Your hospital care team: Physician: Dr. Georges Sandy Field Naturalist: Ken Andujar Aerial Photograph Interpreter: Olesya Auguste Phone number: [phone] Medicaid Transport ([employer]): This process is the same for mileage reimbursement. For transportation to appointments call at least 5 days in advance of the appointment. When using Medicaid Transport/[employer] you will need the following information when requesting a ride: - name, date of , address, phone number, and Medicaid number -address, and phone number of where you are going; -date and time of the appointment; -any special needs, such as wheelchair van If for some reason the ride does not show up you may call the Where's My Ride number at Discharge Attestations NPU Time Spent in Discharge Care*: less than 30 min Specific Discharge Activities: Specific discharge activities: educating patient, discussing with case aide/social workers/dc planners, documenting/other paperwork and evaluating patient/reviewing data Coding Level of Care Code Acute Accounts Collector for Moncho Fwd Diagnoses Bipolar disorder with psychotic features F31.9
[2020-07-14 09:35] VITALS: BP 129/83; PULSE 116; RESP 18; TEMP 36.9; O2SAT 96
== END 2020-07-14 12:19 | disposition home or self-care (01) | DRG 885 ==
LOC: ER 20:13 → NP 20:54
PROVIDERS: Admitting Provider Psychiatry & Neurology Psychiatry; Emergency Provider Emergency Medicine; Visit Provider Psychiatry & Neurology Psychiatry
DX: F31.2 Bipolar disorder, current episode manic severe with psychotic features (principal); F23 Brief psychotic disorder; Z87.891 Personal history of nicotine dependence
CPT/HCPCS: 12345; 36415; 80053; 80306; 80307; 85025; 96372; 99284

== ENCOUNTER 2020-07-26 08:38 | Inpatient (IN) | payer MEDICAID, SELFPAY ==
[2020-07-26 08:40] VITALS: BP 147/105; PULSE 89; RESP 20; TEMP 36.9; O2SAT 99; BMI 27.8
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
[2020-07-26 09:50] LABS: Add Urine Microscopic? NO
[2020-07-26] MEDS: propranolol 20 mg Tablet PO (09:57)
[2020-07-26 10:05] LABS: Bilirubin Urine Neg (Negative); Blood Urine Neg (Negative); Glucose Urine UA Norm (Normal); Ketones Urine Negative (Negative); Leukocyte Esterase Urine Negative (Negative); Nitrate Urine Negative (Negative); Protein Urine Neg (Negative); Urine Appearance Clear (CLEAR); Urine Color Yellow (Yellow); Urobilinogen Urine Norm (Negative)
[2020-07-26 10:07] VITALS: RESP 18
[2020-07-26 10:10] LABS: Amphetamines Screen Urine Negative (Negative); Barbiturates Screen Urine Negative (Negative); Benzodiazepines Screen Urine Negative (Negative); Cocaine Screen Urine Negative (Negative); Opiate Screen Urine Negative (Negative); PCP Screen Urine Negative (Negative); THC Screen Urine Negative (Negative)
[2020-07-26 10:16] LABS: Basophils % 0.6 %; Eosinophils # 0.1 10^3/uL (0.0-0.8); Eosinophils % 2.2 %; Hematocrit 44.2 % (42.0-52.0); Hemoglobin 14.6 g/dL (11.7-16.6); Lymphocytes # 1.3 10^3/uL (0.8-4.8); Lymphocytes % 26.4 %; Mean Corpuscular Hemoglobin 32.2 pg (28.0-34.0); Mean Corpuscular Volume 97.4 fL (80-94); Monocytes # 0.3 10^3/uL (0.2-0.9); Monocytes % 6.9 %; Neutrophils # 3.14 10^3/uL (1.8-7.7); Neutrophils % 63.7 %; Nucleated Red Blood Cells % 0 %; Platelet Count 325 10^3/cmm (130-400); Red Blood Count 4.54 10^6/uL (4.1-5.3); Red Cell Distribution Width 12.2 % (12.1-15.1); White Blood Count 4.9 10^3/uL (4.0-10.0)
[2020-07-26 10:41] LABS: Alanine Aminotransferase 31 U/L (0-41); Albumin Level 4.6 g/dL (3.5-5.2); Alkaline Phosphatase 90 IU/L (40-130); Anion Gap 12.1 (5-19); Aspartate Amino Transferase 22 U/L (0-40); Blood Urea Nitrogen 9 mg/dL (6-20); Calcium 9.2 mg/dL (8.5-10.5); Carbon Dioxide 28 mmol/L (22-29); Chloride 104 mmol/L (98-107); Globulin 2.2 g/dL (1.3-4.6); Glomerular Filtration Rate 131.5 mL/min (90-130); Glucose 99 mg/dL (65-115); Osmolality Calculated 289 mOsm/kg (285-295); Potassium 4.1 mmol/L (3.5-5.1); Sodium 140 mmol/L (136-145); Total Bilirubin 0.4 mg/dL (0.15-1.2); Total Protein 6.8 g/dL (6.6-8.7)
[2020-07-26 10:47] LABS: Acetaminophen < 5.0 ug/mL (10-30); Alcohol Level < 10 mg/dL (0-10); Salicylate < 0.3 mg/dL (3-10)
[2020-07-26 14:24] VITALS: BP 140/95; PULSE 91; RESP 18; O2SAT 99
[2020-07-26 16:42] VITALS: BP 136/98; PULSE 91; RESP 20; TEMP 36.6; O2SAT 95
[2020-07-26] MEDS: OLANZapine 5 mg ODT PO (17:01)
[2020-07-26] MEDS: nicotine 2 mg Gum BUCCAL ×2 (17:16→19:41)
[2020-07-26] MEDS: ARIPiprazole 30 mg Tablet 15 MG PO (18:06)
[2020-07-26] MEDS: trazodone 50 mg Tablet PO (21:37)
[2020-07-26] MEDS: quetiapine 300 mg Tablet PO (21:37)
[2020-07-26] MEDS: hyDROXYzine 25 mg Capsule 50 MG PO (21:37)
[2020-07-26 22:00] VITALS: BP 150/100; PULSE 102; RESP 18; TEMP 37.1; O2SAT 95
[2020-07-27 06:00] VITALS: BP 117/74; PULSE 82; RESP 17; TEMP 36.4; O2SAT 96
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
[2020-07-27] MEDS: ARIPiprazole 30 mg Tablet 15 MG PO (08:31)
[2020-07-27] MEDS: OLANZapine 5 mg ODT PO ×2 (08:31→17:39)
[2020-07-27] MEDS: nicotine 2 mg Gum BUCCAL ×2 (10:14→19:38)
[2020-07-27 14:00] VITALS: BP 119/79; PULSE 108; RESP 18; TEMP 36.2; O2SAT 94
[2020-07-27] MEDS: hyDROXYzine 25 mg Capsule 50 MG PO ×2 (14:21→23:02)
--- NOTE | 2020-07-27 16:36 | PC.NURSE ---
Vistaril/Anxiety Patient at nurses station at 1421 reporting increased anxiety. PRN Vistaril given. Patient reports at this time he really feels like this medication was helpful.
--- NOTE | 2020-07-27 17:39 | PC.NURSE ---
PRN ZYPREXA ZYDIS Patient reports mildly increased anxiety and agitation at this time. PRN Zyprexa Zydis given at this time, will monitor for effectiveness of this drug.
[2020-07-27 20:12] VITALS: BP 130/78; PULSE 104; RESP 17; TEMP 36.5; O2SAT 94
[2020-07-27] MEDS: quetiapine 300 mg Tablet PO (23:02)
[2020-07-27] MEDS: propranolol 20 mg Tablet PO (23:02)
[2020-07-27] MEDS: trazodone 50 mg Tablet PO (23:02)
[2020-07-28 05:57] VITALS: BP 120/77; PULSE 94; RESP 18; TEMP 37; O2SAT 97
[2020-07-28] MEDS: hyDROXYzine 25 mg Capsule 50 MG PO ×3 (06:36→22:14)
[2020-07-28] MEDS: ARIPiprazole 30 mg Tablet 15 MG PO (08:17)
[2020-07-28] MEDS: propranolol 20 mg Tablet PO ×2 (11:10→22:13)
[2020-07-28] MEDS: nicotine 2 mg Gum BUCCAL ×3 (11:10→17:36)
--- NOTE | 2020-07-28 11:20 | PC.NURSE ---
PRN INDERAL 20 MG GIVEN PO PER PT C/O STATED ANXIETY. WILL CONT TO MONITOR.
[2020-07-28 14:00] VITALS: BP 153/99; PULSE 101; RESP 18; TEMP 36.6; O2SAT 94
[2020-07-28] MEDS: OLANZapine 5 mg ODT PO (16:56)
--- NOTE | 2020-07-28 16:57 | PC.NURSE ---
PRN ZYPREXA ZYDIS 5 MG GIVEN PO PER PT C/O STATED ANXIETY. PT HAS BEEN PLEASANT, UP AT NURSES STATION, NO OUTWARD S/S OF ANXIETY NOTED. WILL CONT TO MONITOR
--- NOTE | 2020-07-28 18:52 | PM.NPN ---
Mental Status Exam MSE Comments: This is a well-nourished, well-developed white male with adequate grooming and eye contact with hospital scrubs on. No abnormal movements except for mild psychomotor agitation. More cooperative with exam in less distress. Speech was more normal rate and volume and effeminate. Mood described as OK, affect less irritable. Thought process disorganized at times, thought content: Patient denied suicidal or homicidal ideations, there were no delusions reported but paranoid delusions noted, but improving. He did not report auditory or visual hallucinations. Attention and concentration were limited and memory was unreliable but none were formally tested. He is alert and oriented times 3. Insight and judgment are impaired, but improving impulse control is impaired. Vitals/I&O/Wt Last Vital Signs Temp 98.4 F 07/28/20 20:09 Pulse 112 H 07/28/20 20:09 Resp 18 07/28/20 20:09 BP 126/84 07/28/20 20:09 Pulse Ox 95 07/28/20 20:09 Data NPU : 07/26/20 10:00 07/26/20 10:00 A&P Additional A&P Information (1) Acute psychosis: (2) Bipolar disorder with psychotic features: (3) Shirin: This is a 29-year-old white male who presents with jose shirin/psychosis which is not his extreme as it was when he presented last month however he did not continue the oral dosing to augment his IM Abilify Maintena injection and has slipped back into his psychosis. 1. Continue current medication. 2. Continue every 15 minute checks for safety 3. Encourage individual, group and milieu therapy. 4. We will make sure appropriate outpatient supports exist to avoid a breakdown like that which occurred this previous discharge. Involuntary Hold Information 96 Hour Hold: 96 Hour Involuntary Admission: Yes 96 Hour Hold Ending Date: 08/02/20 96 Hour Hold Ending Time: 12:00 Attestations NPU Medical Necessity Statement*: Inpatient hospitalization is medically necessary and the clinically appropriate intervention at this time. We will monitor medications and make changes as indicated. Likely length of stay 4-6 days. Coding Level of Care Code Acute French Drawer for Moncho Marvin
[2020-07-28 20:09] VITALS: BP 126/84; PULSE 112; RESP 18; TEMP 36.9; O2SAT 95
[2020-07-28] MEDS: quetiapine 300 mg Tablet PO (22:13)
[2020-07-29 06:00] VITALS: BP 119/83; PULSE 83; RESP 19; TEMP 36.5; O2SAT 98
[2020-07-29] MEDS: nicotine 21 mg Patch 1 PATCH TRANSDERMA (07:58)
[2020-07-29] MEDS: hyDROXYzine 25 mg Capsule 50 MG PO ×3 (07:59→20:47)
[2020-07-29] MEDS: ARIPiprazole 30 mg Tablet 15 MG PO (07:59)
[2020-07-29] MEDS: propranolol 20 mg Tablet PO ×3 (07:59→20:05)
--- NOTE | 2020-07-29 08:00 | PC.NURSE ---
PRN VISTARIL PRN VISTARIL 50 MG GIVEN PO PER PT C/O PT STATED ANXIETY. WILL CONTINUE TO MONITOR FOR MEDICATION EFFECTIVENESS.
[2020-07-29 14:00] VITALS: BP 127/75; PULSE 105; RESP 20; TEMP 36.3; O2SAT 96
--- NOTE | 2020-07-29 14:12 | PC.NURSE ---
PRN VISTARIL 50 MG GIVEN PO PER PT C/O STATED ANXIETY. NO OUTWARD S/S OF ANXIETY NOTED. PT UP LAUGHING IN CONVERSATION WITH STAFF. WILL CONT TO MONITOR
[2020-07-29 19:51] VITALS: BP 114/77; PULSE 99; RESP 18; TEMP 36.5; O2SAT 95
[2020-07-29] MEDS: alum-mag-hydroxide-sime 30 mL UDC PO (20:05)
[2020-07-29] MEDS: quetiapine 300 mg Tablet PO (20:05)
--- NOTE | 2020-07-29 20:31 | PM.NPN ---
Subjective NPU Subjective: Interval history: Kenneth presents today doing a little bit better and reporting that he feels better. He endorses being much less on edge and acknowledges that him not taking the oral medication after discharge was probably the culprit of him having symptoms again. We discussed the fact that likely by discharge he will not need to take the oral dose anymore but a week at the most. We talked about the possibility of discharge at the beginning of the week. Mental Status Exam MSE Comments: This is a well-nourished, well-developed white male with adequate grooming and eye contact with hospital scrubs on. No abnormal movements except for resolving mild psychomotor agitation. Mostly cooperative with exam in no acute distress. Speech was more normal rate and volume and effeminate. Mood described as a little better, affect congruent. Thought process more organized, thought content: Patient denied suicidal or homicidal ideations, there were no delusions reported or noted. He did not report auditory or visual hallucinations. Attention and concentration were improving and memory was more reliable but none were formally tested. He is alert and oriented times 3. Insight and judgment are impaired, but improving impulse control is impaired. Vitals/I&O/Wt Last Vital Signs Temp 97.7 F 07/29/20 19:51 Pulse 99 07/29/20 19:51 Resp 18 07/29/20 19:51 BP 114/77 07/29/20 19:51 Pulse Ox 95 07/29/20 19:51 Data NPU : 07/26/20 10:00 07/26/20 10:00 A&P Additional A&P Information (1) Acute psychosis: (2) Bipolar disorder with psychotic features: (3) Silvio: This is a 29-year-old white male who presents with jose silvio/psychosis which is not his extreme as it was when he presented last month however he did not continue the oral dosing to augment his IM Abilify Maintena injection and has slipped back into his psychosis. 1. Continue current medication. 2. Continue every 15 minute checks for safety 3. Encourage individual, group and milieu therapy. 4. We will make sure appropriate outpatient supports exist to avoid a breakdown like that which occurred this previous discharge. Involuntary Hold Information 96 Hour Hold: 96 Hour Involuntary Admission: Yes 96 Hour Hold Ending Date: 08/02/20 96 Hour Hold Ending Time: 12:00 Attestations NPU Medical Necessity Statement*: Inpatient hospitalization is medically necessary and the clinically appropriate intervention at this time. We will monitor medications and make changes as indicated. Likely length of stay 3-5 days. Coding Level of Care Code Acute Credit Operations Processor for Moncho Marvin
[2020-07-29] MEDS: doxepin 10 mg Capsule PO (20:47)
--- NOTE | 2020-07-29 21:55 | PC.NURSE ---
PM assessment Pt v/s are normal, heart/lung sounds normal. PT denies SI/HI. Denies VH, confirms AH stating, I hear whispers and mumbles but the meds must be working because they are less than before. Pt does report increased anxiety but indicated that Visteril helps hold him over until he gets his medications at night. Pt is somewhat anxious at this time, but he is helpful with staff. He is in a good mood, smiling, and talkative. He asks and answers questions appropriately at this time.
[2020-07-30 06:00] VITALS: BP 120/88; PULSE 84; RESP 19; TEMP 36.9; O2SAT 98
[2020-07-30] MEDS: nicotine 21 mg Patch 1 PATCH TRANSDERMA (06:52)
[2020-07-30] MEDS: hyDROXYzine 25 mg Capsule 50 MG PO ×4 (06:53→20:38)
[2020-07-30] MEDS: ARIPiprazole 30 mg Tablet 15 MG PO (07:49)
[2020-07-30] MEDS: alum-mag-hydroxide-sime 30 mL UDC PO ×2 (07:49→20:38)
[2020-07-30] MEDS: propranolol 20 mg Tablet PO ×3 (07:49→22:42)
--- NOTE | 2020-07-30 07:51 | PC.NURSE ---
PRN MAALOX 30 ML GIVEN PO PER PT C/O INDIGESTION
--- NOTE | 2020-07-30 11:30 | PC.NURSE ---
PRN VISTARIL 50 MG GIVEN PO PER PT C/O STATED ANXIETY. NO OUTWARD S/S OF ANXIETY NOTED
[2020-07-30 14:00] VITALS: BP 112/76; PULSE 99; RESP 18; TEMP 37.1
--- NOTE | 2020-07-30 14:56 | P.PN_ITS ---
Subjective NPU Subjective: Interval history: Caleb presents today reporting that his mother is coming to visit. He reports he feels much better and is looking forward to discharge. We discussed the fact that given the fact that he did not take the medication while he was gone that we will get another couple days of medication and by Saturday and likely discharge then when there would be no more need for oral medication Abilify at least. He was open to that plan and we discussed the risk benefits and alternatives of proceeding in that manner and he understood and agreed to proceed as is documented in this note. Mental Status Exam MSE Comments: This is a well-nourished, well-developed white male with adequate grooming and eye contact with hospital scrubs on. No abnormal movements. Cooperative with exam in no acute distress. Speech was normal rate and volume and effeminate. Mood described as a little better, affect congruent. Thought process more organized, thought content: Patient denied suicidal or homicidal ideations, there were no delusions reported or noted. He did not report auditory or visual hallucinations. Attention and concentration were improving and memory was more reliable but none were formally tested. He is alert and oriented times 3. Insight and judgment improving, impulse control is impaired but improving. Vitals/I&O/Wt Last Vital Signs Temp 98.4 F 07/30/20 06:00 Pulse 84 07/30/20 06:00 Resp 19 H 07/30/20 06:00 BP 120/88 07/30/20 06:00 Pulse Ox 98 07/30/20 06:00 Data NPU : 07/26/20 10:00 07/26/20 10:00 A&P Additional A&P Information (1) Acute psychosis: (2) Bipolar disorder with psychotic features: (3) Silvio: This is a 29-year-old white male who presents with jose silvio/psychosis which is not his extreme as it was when he presented last month however he did not continue the oral dosing to augment his IM Abilify Maintena injection and has slipped back into his psychosis. 1. Continue current medication. 2. Continue every 15 minute checks for safety 3. Encourage individual, group and milieu therapy. 4. We will make sure appropriate outpatient supports exist to avoid a breakdown like that which occurred this previous discharge. Involuntary Hold Information 96 Hour Hold: 96 Hour Involuntary Admission: Yes 96 Hour Hold Ending Date: 08/02/20 96 Hour Hold Ending Time: 12:00 Attestations NPU Medical Necessity Statement*: Inpatient hospitalization is medically necessary and the clinically appropriate intervention at this time. We will monitor medications and make changes as indicated. Likely length of stay 2-4 days. Coding Level of Care Code Acute Screen Making Supervisor for Moncho Marvin
--- NOTE | 2020-07-30 18:04 | PC.NURSE ---
PRN VISTARIL 50 MG GIVEN PO PER PT C/O STATED ANXIETY
[2020-07-30 20:12] VITALS: BP 138/91; PULSE 109; RESP 19; TEMP 36.8; O2SAT 95
[2020-07-30] MEDS: doxepin 10 mg Capsule PO (20:38)
[2020-07-30] MEDS: quetiapine 300 mg Tablet PO (20:38)
--- NOTE | 2020-07-30 22:19 | PC.NURSE ---
PM ASSESSMENT PT DENIES VH. PT IS EXPERIENCING DECREASED AH. PT STATED, I ONLY HEAR MURMURS NOW AND THEY ONLY TEND TO INCREASE IF I AM STRESSED AND IT SEEMS THIS HAPPENS LATER IN THE DAY. PATIENT IS BORED AND PACING THE HALLWAYS. PT STATED, I WANT TO GO HOME. I FEEL LIKE I AM READY THIS TIME. V/S ARE WNL, HEART/LUNG SOUNDS ARE UNREMARKABLE. PT IS PLEASANT, HELPFUL, AND INTERACTS WITH STAFF APPROPRIATELY.
[2020-07-31 05:49] VITALS: BMI 27.8
[2020-07-31 06:00] VITALS: BP 106/64; PULSE 67; RESP 18; TEMP 36.9; O2SAT 97
[2020-07-31] MEDS: hyDROXYzine 25 mg Capsule 50 MG PO ×3 (08:04→20:55)
[2020-07-31] MEDS: nicotine 2 mg Gum BUCCAL ×2 (08:05→11:45)
[2020-07-31] MEDS: propranolol 20 mg Tablet PO ×3 (08:05→20:55)
[2020-07-31] MEDS: ARIPiprazole 30 mg Tablet 15 MG PO (08:05)
[2020-07-31] MEDS: alum-mag-hydroxide-sime 30 mL UDC PO ×2 (08:05→17:57)
[2020-07-31] MEDS: OLANZapine 5 mg ODT PO ×2 (11:45→20:56)
[2020-07-31 14:00] VITALS: BP 112/72; PULSE 87; RESP 16; TEMP 36.5; O2SAT 98
[2020-07-31] MEDS: nicotine 21 mg Patch 1 PATCH TRANSDERMA (14:24)
--- NOTE | 2020-07-31 18:56 | P.PN_ITS ---
Subjective NPU Subjective: Interval history: Caleb presents today continuing to show improvement. He denied any major issues at this time. He denied side effects of the medication and endorsed a plan to follow-up with medication and treatment as recommended. He was lobbying for discharge but understanding our desire to make sure there are no issues that might get in the way of his medication. We discussed the possibility of discharge tomorrow. Mental Status Exam MSE Comments: This is a well-nourished, well-developed white male with adequate grooming and eye contact with hospital scrubs on. No abnormal movements. Cooperative with exam in no acute distress. Speech was normal rate and volume and effeminate. Mood described as pretty good, affect congruent. Thought process more organized, thought content: Patient denied suicidal or homicidal ideations, there were no delusions reported or noted. He did not report auditory or visual hallucinations. Attention and concentration were improving and memory was more reliable but none were formally tested. He is alert and oriented times 3. Insight and judgment improving, impulse control is impaired but improving. Vitals/I&O/Wt Last Vital Signs Temp 97.4 F L 07/31/20 19:49 Pulse 94 07/31/20 19:49 Resp 20 H 07/31/20 19:49 BP 120/88 07/31/20 19:49 Pulse Ox 94 07/31/20 19:49 Weight last 48 hrs Weight 90.718 kg Data NPU : 07/26/20 10:00 07/26/20 10:00 A&P Additional A&P Information (1) Acute psychosis: (2) Bipolar disorder with psychotic features: (3) Silvio: This is a 29-year-old white male who presents with jose silvio/psychosis which is not his extreme as it was when he presented last month however he did not continue the oral dosing to augment his IM Abilify Maintena injection and has slipped back into his psychosis. 1. Continue current medication. 2. Continue every 15 minute checks for safety 3. Encourage individual, group and milieu therapy. 4. We will make sure appropriate outpatient supports exist to avoid a breakdown like that which occurred this previous discharge, and consider discharge tomorrow. Involuntary Hold Information 96 Hour Hold: 96 Hour Involuntary Admission: Yes 96 Hour Hold Ending Date: 08/02/20 96 Hour Hold Ending Time: 12:00 Attestations NPU Medical Necessity Statement*: Inpatient hospitalization is medically necessary and the clinically appropriate intervention at this time. We will monitor medications and make changes as indicated. Likely length of stay 1-3 days. Coding Level of Care Code Acute Cloth Printing Inspector for Moncho Marvin
[2020-07-31 19:49] VITALS: BP 120/88; PULSE 94; RESP 20; TEMP 36.3; O2SAT 94
[2020-07-31] MEDS: quetiapine 300 mg Tablet PO (20:55)
[2020-07-31] MEDS: doxepin 10 mg Capsule PO (21:20)
[2020-08-01 06:00] VITALS: BP 87/58; PULSE 73; RESP 18; TEMP 36.2; O2SAT 98
[2020-08-01] MEDS: hyDROXYzine 25 mg Capsule 50 MG PO (07:46)
[2020-08-01] MEDS: ARIPiprazole 30 mg Tablet 15 MG PO (07:46)
[2020-08-01] MEDS: propranolol 20 mg Tablet PO ×2 (07:47→14:43)
[2020-08-01] MEDS: nicotine 21 mg Patch 1 PATCH TRANSDERMA (09:34)
[2020-08-01] MEDS: alum-mag-hydroxide-sime 30 mL UDC PO (11:53)
[2020-08-01 13:24] VITALS: BP 87/58; PULSE 73; RESP 18; TEMP 36.2; O2SAT 98
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
== END 2020-08-01 15:35 | disposition home or self-care (01) | DRG 885 ==
LOC: ER 13:10 → NP 15:35
PROVIDERS: Nurse Practitioner Family; Admitting Provider Psychiatry & Neurology Psychiatry; Emergency Provider Family Medicine; Visit Provider Psychiatry & Neurology Psychiatry
DX: F23 Brief psychotic disorder (principal); F31.2 Bipolar disorder, current episode manic severe with psychotic features; Z91.5 Personal history of self-harm
CPT/HCPCS: 12345; 80053; 80306; 80307; 81003; 85025; 99284